=== PATIENT | male | born 1975 | race Caucasian/White ===

== ENCOUNTER 2019-11-04 13:43 | Emergency (ER) | payer OTHER ==
[~2019-11-04] VITALS: Ht 177.8 cm; Wt 69.8 kg
[2019-11-04] MEDS ORDERED: NEURONTIN100 MG PO (13:55)
[2019-11-04] MEDS ORDERED: ACYCLOVIR 800800 MG PO (14:36)
[2019-11-04] MEDS ORDERED: LIDOCAINE15 GM TOP (14:36)
[2019-11-04 14:37] VITALS: BP 106/68
== END 2019-11-04 14:38 | disposition home or self-care (01) ==
LOC: ER 13:43
DX: B00.89 Other herpesviral infection (principal); F31.9 Bipolar disorder, unspecified; Z86.19 Personal history of other infectious and parasitic diseases; Z88.0 Allergy status to penicillin; F17.210 Nicotine dependence, cigarettes, uncomplicated